=== PATIENT | female | born 1985 | race African-American/Black ===

== ENCOUNTER 2021-08-03 18:15 | Emergency (ER) | payer MEDICAID ==
[~2021-08-03] VITALS: Ht 162.6 cm; Wt 54.0 kg
[2021-08-03] MEDS ORDERED: TRAMADOL 50MG TABLET PO ONE (18:45)
[2021-08-03 18:56] VITALS: BP 132/52
[2021-08-03] MEDS ORDERED: KETOROLAC 60MG/2ML VIAL IM ONE (19:45)
[2021-08-03] MEDS ORDERED: TRAM50TA3 MT (20:51)
[2021-08-03] MEDS ORDERED: IBUP-2028 MT (20:51)
== END 2021-08-03 21:41 | disposition home or self-care (01) ==
LOC: ER 18:15
DX: S40.021A Contusion of right upper arm, initial encounter (principal); S20.20XA Contusion of thorax, unspecified, initial encounter; V43.52XA Car driver injured in collision with other type car in traffic accident, initial encounter; W22.11XA Striking against or struck by driver side automobile airbag, initial encounter; Y93.89 Activity, other specified; Y92.488 Other paved roadways as the place of occurrence of the external cause
CPT/HCPCS: 29125; 71101; 73030; 73080; 73090; 73110; 81025; 96372; 99284; J1885